=== PATIENT | female | born 1990 | race African-American/Black ===

== ENCOUNTER 2019-06-27 20:52 | Emergency (ER) | payer MEDICAID ==
[2019-06-27 21:28] VITALS: Ht 157.5 cm
[2019-06-27 23:29] LABS: UA SPECIFIC GRAVITY >=1.030 (1.005-1.035); microscopic required? YES; urine erythrocyte TRACE (NEGATIVE)
[2019-06-27 23:33] LABS: PLATELET COUNT 393 x10^3mcL (130-400); RED CELL DISTRIBUTION WIDTH 13.6 % (11.5-14.5)
[2019-06-27 23:35] LABS: BASOPHIL % 0 % (0-2)
[2019-06-27 23:38] LABS: AMPHETAMINE QUAL UR POSITIVE (See below)
[2019-06-27 23:39] LABS: CALCIUM 8.8 mg/dL (8.5-10.1); CARBON DIOXIDE 28.7 mmol/L (21-32); CHLORIDE SERUM 101 mmol/L (98-107); CREATININE SERUM 0.6 mg/dL (0.6-1.0); GFR1 > 60 mL/min; GLUCOSE SERUM 92 mg/dL (74-106); POTASSIUM SERUM 3.6 mmol/L (3.5-5.1); SODIUM SERUM 140 mmol/L (136-145)
[2019-06-27 23:43] LABS: ALBUMIN 3.7 g/dL (3.4-5.0); ALKALINE PHOSPHATASE 62 U/L (46-116); ALT/SGPT 12 U/L (14-59); AST/SGOT 17 U/L (15-37); BILIRUBIN TOTAL 0.28 mg/dL (0.20-1.00); TOTAL PROTEIN, SERUM 7.9 g/dL (6.4-8.2)
[2019-06-28 07:18] VITALS: BP 112/61
== END 2019-06-28 07:18 | disposition home or self-care (01) ==
LOC: ED 20:52
PROVIDERS: Emergency Medicine
DX: F20.9 Schizophrenia, unspecified (principal); N39.0 Urinary tract infection, site not specified; F15.10 Other stimulant abuse, uncomplicated; Z59.0 Homelessness
CPT/HCPCS: 36415; G0480

== ENCOUNTER 2019-06-28 08:54 | Emergency (ER) | payer MEDICAID ==
[~2019-06-28] VITALS: Ht 157.5 cm; Wt 63.5 kg
[2019-06-28 09:06] VITALS: BP 123/79; Ht 157.5 cm; Wt 63.5 kg
[2019-06-28 10:11] LABS: CALCIUM 8.4 mg/dL (8.5-10.1); CARBON DIOXIDE 28.3 mmol/L (21-32); CHLORIDE SERUM 105 mmol/L (98-107); CREATININE SERUM 0.6 mg/dL (0.6-1.0); GFR1 > 60 mL/min; GLUCOSE SERUM 91 mg/dL (74-106); POTASSIUM SERUM 4.1 mmol/L (3.5-5.1); SODIUM SERUM 140 mmol/L (136-145)
[2019-06-28 10:16] LABS: ALBUMIN 3.5 g/dL (3.4-5.0); ALKALINE PHOSPHATASE 60 U/L (46-116); ALT/SGPT 13 U/L (14-59); AST/SGOT 15 U/L (15-37); BILIRUBIN TOTAL 0.42 mg/dL (0.20-1.00); TOTAL PROTEIN, SERUM 7.7 g/dL (6.4-8.2)
[2019-06-28 10:38] LABS: BASOPHIL % 0.4 % (0-2); PLATELET COUNT 396 x10^3mcL (130-400); RED CELL DISTRIBUTION WIDTH 13.9 % (11.5-14.5)
== END 2019-06-28 11:21 | disposition home or self-care (01) ==
LOC: ED 08:54
PROVIDERS: Emergency Medicine
DX: R10.2 Pelvic and perineal pain (principal); F20.9 Schizophrenia, unspecified
CPT/HCPCS: 36415; Q0162